=== PATIENT | male | born 1955 | race Caucasian/White ===

== ENCOUNTER → 2017-05-10 | Day surgery (SDC) | payer OTHER ==
[~2017-05-10] MED LIST: BUPIVACAINE/EPINEPHRINE 0.25% PF 10 ML VIAL ONE; KETOROLAC TROMETHAMINE 30 MG/ML (IVP) VIAL IV PUSH ONE; LACTATED RINGER'S 1000 ML INJ 1,000 ML ONE; MIDAZOLAM HCL 2 MG/2 ML VIAL ONE; MORPHINE SULFATE 2 MG/ML INJ ONE; ONDANSETRON HCL 4 MG/2 ML VIAL IV PUSH ONE; PROPOFOL 200 MG/20 ML AMP IV ONE; ceFAZolin INJ 1,000 MG VIAL ONE
--- NOTE | 2017-05-10 16:16 | TN ---
cc: Ovi Olmos MD DATE OF SURGERY: 05/10/2017 ATTENDING PHYSICIAN: Surgeon, Ovi Olmos MD PREOPERATIVE DIAGNOSIS: Left knee torn medial meniscus, possible loose body. POSTOPERATIVE DIAGNOSIS: Left knee torn medial meniscus; osteoarthritis medial compartment with chondromalacia, medial tibial plateau, medial femoral condyle; multiple loose bodies in posterior medial compartment. PROCEDURE: Left knee arthroscopy with partial medial meniscectomy, removal of loose bodies. PROCEDURE IN DETAIL: Informed consent obtained. Patient taken to operating room, placed in the supine position on operating room table. He was administered general anesthesia by Dr. Teixeira of the anesthesia department. At that time, tourniquet was applied to the left thigh. Left leg was prepped with Betadine soap, followed by Betadine paint. The leg was elevated. Timeout was held and confirmed. The patient had been given a gram of Ancef prior to initiation of the operative procedure. The leg was prepped and draped in the usual fashion and the tourniquet was inflated to 300 mmHg. At that time, the leg was allowed to flex over the side of the operating table, and an 18-gauge spinal needle was placed in the region of the lateral and patellar portal. This region was infiltrated with 4 mL of 0.25% Marcaine with epinephrine. Infiltration was also performed in the medial and patellar portal and transpatellar tendon portal regions. A small incision was made with an 11 blade in the region of the transpatellar tendon portal, and inflow cannula was placed. A second incision was placed in the region of the lateral and patella portal. The arthroscopic cannula was placed. Diagnostic arthroscopy commenced. The medial compartment was examined. There were some grade III and some grade IV changes of chondromalacia noted to the medial compartment. There was a complex degenerative-type tear involving the medial meniscus including horizontal cleavage components and some radial components, which extended to the posterior horn region. Medial portal was established. The meniscus was probed and utilizing the upbiting basket forceps and the Fundology meniscal shaver, partial medial meniscectomy was performed. When the meniscus was debrided to a stable rim, the articular surface was checked. There were significant degenerative changes noted on the articular surface. The scope was maneuvered over the intercondylar notch to the edge of the lateral compartment, and the leg was placed in a figure-four position. The lateral femoral condyle, lateral tibial plateau both looked good. Popliteus tendon looked good, and the lateral meniscus was intact. There was slight fraying of the free edge of the lateral meniscus, which was debrided with a meniscal shaver. At that time, the scope was placed in the intercondylar notch. The leg was again flexed. The anterior and posterior cruciate ligaments appeared normal. Scope was placed in the suprapatellar pouch. There were some mild chondromalacia changes noted on the inner surface of the patella. Trochlear groove looked good. There were no pathologic plicas identified. It should be noted that in the intercondylar notch there was a tethered loose body identified on inspection and this was removed. The scope was then placed in the posterior medial compartment. There were 2 large loose bodies identified in the posteromedial compartment, and attempt was made to bring these out through the intercondylar notch. A posterior portal was established. Through working, both the loose bodies were removed. There was 1 that was approximately 7 mm in length. The other was a centimeter to 11 cm in length. Both were firm, hard and covered with articular-appearing cartilage. At that time, the knee was checked. There were no additional loose bodies seen. The posterolateral compartment was also checked. The knee was thoroughly irrigated and suctioned. All cannulas were removed. Each portal was closed with a single 4-0 nylon interrupted stitch. Four bandages applied over the 4 arthroscopic portals; 4 x 4, Sof-Rol, Fede wrap were applied and the tourniquet was deflated. Total tourniquet time was 65 minutes. Patient tolerated procedure well, was then taken to recovery room in stable condition. At the completion of procedure, sponge count, instrument count, needle counts were correct. A total of six 3 L bags or 18,000 mL of saline irrigation fluid was utilized during this arthroscopy. Estimated blood loss less than 10 mL. MD CARLOTA Grimm/LEEROY , 03:43 PM , 04:14 PM L[facility]
== END | disposition home or self-care (01) ==
LOC: ESDC 12:43
PROVIDERS: ATTEND Orthopaedic Surgery
DX: S83.232A Complex tear of medial meniscus, current injury, left knee, initial encounter (principal); M17.12 Unilateral primary osteoarthritis, left knee; M94.262 Chondromalacia, left knee
CPT/HCPCS: 01400; 29881; J0690; J1885; J2250; J2270; J2405; J3010; J7120